=== PATIENT | male | born 1945 | race Caucasian/White ===

== ENCOUNTER 2016-05-17 22:00 | Inpatient (IN) | payer MEDICARE ==
[~2016-05-17] VITALS: Ht 175.3 cm; Wt 65.5 kg
[2016-05-17] MEDS ORDERED: SODIUM CHLORIDE 0.9% 1,000 ML IV SCH (22:05)
[2016-05-17] MEDS ORDERED: FENTANYL PF 100 MCG/2ML ONE ×2 (22:07→22:16)
[2016-05-17 22:16] LABS: HEMOGLOBIN 16.3 g/dL (13.7-18.0)
[2016-05-17] MEDS ORDERED: VERAPAMIL 2.5 MG/ML, 2ML ONE (22:16)
[2016-05-17] MEDS ORDERED: MIDAZOLAM 1 MG/ML, 5ML ONE (22:16)
[2016-05-17] MEDS ORDERED: BIVALIRUDIN 250 MG ONE (22:17)
[2016-05-17] MEDS ORDERED: TICAGRELOR 90 MG TABLET ONE (22:17)
[2016-05-17] MEDS ORDERED: HEPARIN 1,000 UNITS/ML, 10ML ONE (22:17)
[2016-05-17] MEDS ORDERED: LIDOCAINE 2%, 20ML ONE (22:17)
[2016-05-17] MEDS ORDERED: PLEASE ENTER HEIGHT AND WEIGHT MC SCH (22:30)
[2016-05-17] MEDS ORDERED: NITROGLYCERIN 0.4 MG BOTTLE (25 TABS) SL PRN (22:30)
[2016-05-17] MEDS ORDERED: FENTANYL PF 100 MCG/2ML IVPush PRN (22:30)
[2016-05-17] MEDS ORDERED: ATORVASTATIN 80 MG TABLET PO ONE (22:30)
[2016-05-17] MEDS ORDERED: SODIUM CHLORIDE 0.9%, 500ML IVBOLUS ONE (22:30)
[2016-05-17] MEDS ORDERED: EPTIFIBATIDE 20 MG/10 ML ONE (22:59)
[2016-05-17] MEDS ORDERED: HEPARIN 25,000 UNITS/500ML PMX 500 ML ONE (23:08)
[2016-05-17] MEDS ORDERED: AMIODARONE 50 MG/ML, 3ML ONE (23:14)
[2016-05-17] MEDS: METOPROLOL TARTRATE 25 MG TABLET PO SCH (23:30)
[2016-05-17] MEDS ORDERED: ONDANSETRON 2MG/ML, 2ML IVPush PRN (23:30)
[2016-05-17] MEDS ORDERED: PHENYLEPHRINE 10 MG/ML ONE (23:35)
[2016-05-17] MEDS ORDERED: HEPARIN 5,000 UNITS/ML, 1ML IV ONE (23:45)
[2016-05-18 00:29] VITALS: BP 103/72
[2016-05-18] MEDS: ATORVASTATIN 80 MG TABLET PO SCH ×2 (01:18→20:31)
[2016-05-18 04:58] VITALS: BP 96/66
[2016-05-18] MEDS: PHENYLEPHRINE 20 MG in SODIUM CHLORIDE 0.9% 248 ML IV PRN ×3 (05:16→21:24)
[2016-05-18 05:51] LABS: HEMOGLOBIN 15.3 g/dL (13.7-18.0)
[2016-05-18 05:59] LABS: BLOOD UREA NITROGEN 9 mg/dL (7-18)
[2016-05-18] MEDS: HEPARIN 5,000 UNITS/ML, 1ML IV PRN ×3 (06:03→20:29)
[2016-05-18 06:18] LABS: IS PT STATUS REG ER OR PRE ER? NO
[2016-05-18] MEDS: ASPIRIN 81 MG TABLET EC PO SCH ×2 (09:00→13:36)
[2016-05-18] MEDS: METOPROLOL TARTRATE 25 MG TABLET PO SCH ×2 (09:00→20:29)
[2016-05-18] MEDS: SODIUM CHLORIDE FLUSH 10ML SYR IVF SCH ×2 (13:33→20:32)
[2016-05-18] MEDS: HYDROCORTISONE 100 MG INJ. IVPush SCH (18:34)
[2016-05-19] MEDS: HYDROCORTISONE 100 MG INJ. IVPush SCH (02:28)
[2016-05-19] MEDS: HEPARIN 25,000 UNITS/500ML PMX 500 ML IV PRN ×2 (02:30→23:35)
[2016-05-19 04:00] VITALS: BP 94/71
[2016-05-19] MEDS: PHENYLEPHRINE 20 MG in SODIUM CHLORIDE 0.9% 248 ML IV PRN ×2 (05:42→15:54)
[2016-05-19] MEDS: METOPROLOL TARTRATE 25 MG TABLET PO SCH ×2 (09:00→21:00)
[2016-05-19 09:07] LABS: BLOOD UREA NITROGEN 8 mg/dL (7-18)
[2016-05-19] MEDS: SODIUM CHLORIDE FLUSH 10ML SYR IVF SCH ×2 (09:43→22:19)
[2016-05-19] MEDS: HEPARIN 5,000 UNITS/ML, 1ML IV PRN (09:43)
[2016-05-19] MEDS: ASPIRIN 81 MG TABLET EC PO SCH (09:43)
[2016-05-19] MEDS: ATORVASTATIN 80 MG TABLET PO SCH (22:19)
[2016-05-20] MEDS: HEPARIN 5,000 UNITS/ML, 1ML IV PRN (00:04)
[2016-05-20] MEDS: PHENYLEPHRINE 20 MG in SODIUM CHLORIDE 0.9% 248 ML IV PRN ×2 (02:12→15:27)
[2016-05-20 04:00] VITALS: BP 92/50
[2016-05-20 06:04] LABS: ASPARTATE AMINO TRANSFERASE 23 U/L (15-37); BLOOD UREA NITROGEN 10 mg/dL (7-18)
[2016-05-20] MEDS: METOPROLOL TARTRATE 25 MG TABLET PO SCH ×2 (09:00→21:00)
[2016-05-20] MEDS: SODIUM CHLORIDE FLUSH 10ML SYR IVF SCH ×2 (09:00→19:40)
[2016-05-20] MEDS ORDERED: POTASSIUM CHLORIDE 20 MEQ TAB.ER.PRT PO ONE (10:00)
[2016-05-20] MEDS: ASPIRIN 81 MG TABLET EC PO SCH (11:22)
[2016-05-20] MEDS ORDERED: CALCIUM GLUCONATE 4.6 MEQ in SODIUM CHLORIDE 0.9% 50 ML IV ONE (15:00)
[2016-05-20] MEDS: ATORVASTATIN 80 MG TABLET PO SCH (19:38)
[2016-05-20] MEDS: HEPARIN 25,000 UNITS/500ML PMX 500 ML IV PRN (19:39)
[2016-05-21 04:00] VITALS: BP 91/64
[2016-05-21 05:10] LABS: HEMOGLOBIN 13.5 g/dL (13.7-18.0)
[2016-05-21 05:26] LABS: BLOOD UREA NITROGEN 11 mg/dL (7-18)
[2016-05-21] MEDS: HEPARIN 5,000 UNITS/ML, 1ML IV PRN (06:32)
[2016-05-21] MEDS: ASPIRIN 81 MG TABLET EC PO SCH (09:22)
[2016-05-21] MEDS: SODIUM CHLORIDE FLUSH 10ML SYR IVF SCH ×2 (09:23→20:38)
[2016-05-21] MEDS: HEPARIN 25,000 UNITS/500ML PMX 500 ML IV PRN ×2 (15:05→20:35)
[2016-05-21] MEDS ORDERED: WARFARIN 5 MG TABLET PO-COUM ONE (18:00)
[2016-05-21] MEDS: ATORVASTATIN 80 MG TABLET PO SCH (20:32)
[2016-05-22 08:20] LABS: ASPARTATE AMINO TRANSFERASE 24 U/L (15-37); BLOOD UREA NITROGEN 11 mg/dL (7-18)
[2016-05-22] MEDS: ASPIRIN 81 MG TABLET EC PO SCH (08:51)
[2016-05-22] MEDS: SODIUM CHLORIDE FLUSH 10ML SYR IVF SCH ×2 (08:52→20:54)
[2016-05-22] MEDS ORDERED: MAGNESIUM SULFATE PMX 2GM/50ML 50 ML IV ONE (12:00)
[2016-05-22] MEDS: CARVEDILOL 3.125 MG TABLET PO SCH ×2 (12:33→18:00)
[2016-05-22] MEDS ORDERED: FENTANYL PF 100 MCG/2ML ONE (16:13)
[2016-05-22] MEDS ORDERED: VERAPAMIL 2.5 MG/ML, 2ML ONE (16:13)
[2016-05-22] MEDS ORDERED: NITROGLYCERIN 5 MG/ML, 10ML ONE (16:13)
[2016-05-22] MEDS ORDERED: MIDAZOLAM 1 MG/ML, 5ML ONE (16:13)
[2016-05-22] MEDS ORDERED: TICAGRELOR 90 MG TABLET ONE ×2 (16:14→18:48)
[2016-05-22] MEDS ORDERED: HEPARIN 1,000 UNITS/ML, 10ML ONE (16:14)
[2016-05-22] MEDS ORDERED: BIVALIRUDIN 250 MG ONE (16:14)
[2016-05-22] MEDS ORDERED: LIDOCAINE 2%, 20ML ONE (16:15)
[2016-05-22] MEDS ORDERED: WARFARIN 5 MG TABLET PO-COUM SCH (18:00)
[2016-05-22] MEDS ORDERED: ONDANSETRON 2MG/ML, 2ML ONE (18:06)
[2016-05-22] MEDS ORDERED: VASOPRESSIN 20 UNIT/ML, 1ML ONE (18:08)
[2016-05-22] MEDS ORDERED: EPINEPHRINE 1 MG/ML, 1ML ONE (18:08)
[2016-05-22] MEDS ORDERED: PHENYLEPHRINE 10 MG/ML ONE (18:14)
[2016-05-22] MEDS ORDERED: EPTIFIBATIDE 0 ML IV ONE (18:20)
[2016-05-22] MEDS ORDERED: EPTIFIBATIDE 20 MG/10 ML ONE (18:20)
[2016-05-22] MEDS ORDERED: EPINEPHRINE SYRINGE 0.1 MG/ML, 10ML ONE (18:27)
[2016-05-22] MEDS: TICAGRELOR 90 MG TABLET PO SCH (20:53)
[2016-05-22] MEDS: ATORVASTATIN 80 MG TABLET PO SCH (20:53)
[2016-05-22] MEDS: EPTIFIBATIDE 100 ML IV SCH (20:53)
[2016-05-22] MEDS: MORPHINE SULFATE 4 MG/ML, 1ML IVPush PRN (20:57)
[2016-05-23] MEDS: EPTIFIBATIDE 100 ML IV SCH (02:07)
[2016-05-23] MEDS: MORPHINE SULFATE 4 MG/ML, 1ML IVPush PRN (03:01)
[2016-05-23 04:27] LABS: HEMOGLOBIN 13.6 g/dL (13.7-18.0)
[2016-05-23 04:38] LABS: BLOOD UREA NITROGEN 9 mg/dL (7-18)
[2016-05-23] MEDS: CARVEDILOL 3.125 MG TABLET PO SCH ×2 (05:06→18:36)
[2016-05-23] MEDS ORDERED: MAGNESIUM SULFATE PMX 2GM/50ML 50 ML IV ONE (10:00)
[2016-05-23] MEDS ORDERED: FUROSEMIDE 20 MG/2 ML IV ONE (10:00)
[2016-05-23] MEDS: ASPIRIN 81 MG TABLET EC PO SCH (10:15)
[2016-05-23] MEDS: SODIUM CHLORIDE FLUSH 10ML SYR IVF SCH ×2 (10:15→21:33)
[2016-05-23] MEDS: TICAGRELOR 90 MG TABLET PO SCH ×2 (10:15→21:33)
[2016-05-23 12:57] VITALS: BP 93/57
[2016-05-23] MEDS: CALCIUM CARBONATE 500 MG TAB.CHEW PO SCH ×2 (13:00→21:33)
[2016-05-23] MEDS ORDERED: HEPARIN 5,000 UNITS/ML, 1ML IV ONE (13:00)
[2016-05-23] MEDS ORDERED: HEPARIN 25,000 UNITS/500ML PMX 500 ML IV PRN (13:00)
[2016-05-23] MEDS ORDERED: CATHFLO-ALTEPLASE 2 MG/2 ML CATHFLUSH ONE ×2 (13:30→17:30)
[2016-05-23] MEDS ORDERED: WARFARIN 2.5 MG TABLET PO-COUM SCH (18:00)
[2016-05-23 18:34] VITALS: BP 95/61
[2016-05-23] MEDS: ATORVASTATIN 80 MG TABLET PO SCH (21:33)
[2016-05-23] MEDS: HEPARIN 5,000 UNITS/ML, 1ML IV PRN (21:34)
[2016-05-24 01:39] VITALS: BP 92/59
[2016-05-24 05:59] LABS: BLOOD UREA NITROGEN 15 mg/dL (7-18)
[2016-05-24] MEDS: CARVEDILOL 3.125 MG TABLET PO SCH ×2 (06:08→18:26)
[2016-05-24] MEDS: HEPARIN 5,000 UNITS/ML, 1ML IV PRN (06:14)
[2016-05-24 07:17] VITALS: BP 87/58
[2016-05-24] MEDS: ASPIRIN 81 MG TABLET EC PO SCH (09:34)
[2016-05-24] MEDS: TICAGRELOR 90 MG TABLET PO SCH ×2 (09:35→20:16)
[2016-05-24] MEDS: SODIUM CHLORIDE FLUSH 10ML SYR IVF SCH ×2 (09:35→20:16)
[2016-05-24] MEDS: ENALAPRIL 2.5MG TABLET PO SCH ×2 (11:30→20:16)
[2016-05-24 13:35] VITALS: BP 91/70
[2016-05-24] MEDS ORDERED: WARFARIN 2.5 MG TABLET PO-COUM SCH (18:00)
[2016-05-24 18:25] VITALS: BP 96/67
[2016-05-24 18:53] VITALS: BP 98/64
[2016-05-24] MEDS: ATORVASTATIN 80 MG TABLET PO SCH (20:16)
[2016-05-25 01:07] VITALS: BP 92/60
[2016-05-25] MEDS: CARVEDILOL 3.125 MG TABLET PO SCH (05:50)
[2016-05-25 07:39] VITALS: BP 90/60
[2016-05-25] MEDS: TICAGRELOR 90 MG TABLET PO SCH (08:51)
[2016-05-25] MEDS: ASPIRIN 81 MG TABLET EC PO SCH (08:51)
[2016-05-25] MEDS: ENALAPRIL 2.5MG TABLET PO SCH (08:52)
[2016-05-25] MEDS: SODIUM CHLORIDE FLUSH 10ML SYR IVF SCH (08:52)
[2016-05-25] MEDS ORDERED: TICA90TA PO (10:14)
[2016-05-25] MEDS ORDERED: ASPI-621 PO (10:14)
[2016-05-25] MEDS ORDERED: CARV3.1212 PO (10:14)
[2016-05-25] MEDS ORDERED: ATOR80TA75 PO (10:14)
[2016-05-25] MEDS ORDERED: WARF5TAB PO (10:14)
[2016-05-25] MEDS ORDERED: NITR0.4T8 SL (10:25)
[2016-05-25 13:23] VITALS: BP 93/60
[2016-05-25] MEDS ORDERED: WARFARIN 1 MG TABLET PO-COUM ONE (18:00)
== END 2016-05-25 16:04 | disposition home or self-care (01) | DRG 248 ==
LOC: MERGE 22:00 → EDBD 22:00 → EDSEX 22:00 → ED 22:00 → EDIP 22:12 → CCU 23:48 → 5SO 05-22 17:48 → CCU 05-22 19:07 → 5SO 05-23 12:37
PROVIDERS: ADMIT Internal Medicine Cardiovascular Disease; ATTEND Internal Medicine Cardiovascular Disease
PROC: 02703ZZ Dilation of Coronary Artery, One Artery, Percutaneous Approach (ICD-10-PCS; principal; 2016-05-17)
PROC: 03HY32Z Insertion of Monitoring Device into Upper Artery, Percutaneous Approach (ICD-10-PCS; 2016-05-17)
PROC: B2111ZZ Fluoroscopy of Multiple Coronary Arteries using Low Osmolar Contrast (ICD-10-PCS; 2016-05-17)
PROC: B2151ZZ Fluoroscopy of Left Heart using Low Osmolar Contrast (ICD-10-PCS; 2016-05-17)
PROC: 4A023N7 Measurement of Cardiac Sampling and Pressure, Left Heart, Percutaneous Approach (ICD-10-PCS; 2016-05-17)
PROC: 5A2204Z Restoration of Cardiac Rhythm, Single (ICD-10-PCS; 2016-05-17)
PROC: C22G1ZZ Tomographic (Tomo) Nuclear Medicine Imaging of Myocardium using Technetium 99m (Tc-99m) (ICD-10-PCS; 2016-05-18)
PROC: 02HV33Z Insertion of Infusion Device into Superior Vena Cava, Percutaneous Approach (ICD-10-PCS; 2016-05-19)
PROC: B548ZZA Ultrasonography of Superior Vena Cava, Guidance (ICD-10-PCS; 2016-05-19)
PROC: [UNRECOGNIZED PROCEDURE] (2016-05-21)
PROC: 02703D6 Dilation of Coronary Artery, One Artery, Bifurcation, with Intraluminal Device, Percutaneous Approach (ICD-10-PCS; 2016-05-22)
PROC: 02713ZZ Dilation of Coronary Artery, Two Arteries, Percutaneous Approach (ICD-10-PCS; 2016-05-22)
PROC: 02713ZZ Dilation of Coronary Artery, Two Arteries, Percutaneous Approach (ICD-10-PCS; 2016-05-22)
PROC: 4A023N7 Measurement of Cardiac Sampling and Pressure, Left Heart, Percutaneous Approach (ICD-10-PCS; 2016-05-22)
PROC: B2111ZZ Fluoroscopy of Multiple Coronary Arteries using Low Osmolar Contrast (ICD-10-PCS; 2016-05-22)
DX: I21.09 ST elevation (STEMI) myocardial infarction involving other coronary artery of anterior wall (principal); R57.0 Cardiogenic shock; I50.41 Acute combined systolic (congestive) and diastolic (congestive) heart failure; E43 Unspecified severe protein-calorie malnutrition; I49.01 Ventricular fibrillation; I47.2 Ventricular tachycardia; T82.867A Thrombosis due to cardiac prosthetic devices, implants and grafts, initial encounter; F17.210 Nicotine dependence, cigarettes, uncomplicated; I25.5 Ischemic cardiomyopathy; E78.5 Hyperlipidemia, unspecified; E83.51 Hypocalcemia; I25.10 Atherosclerotic heart disease of native coronary artery without angina pectoris; E87.6 Hypokalemia; Y83.1 Surgical operation with implant of artificial internal device as the cause of abnormal reaction of the patient, or of later complication, without mention of misadventure at the time of the procedure; Z68.21 Body mass index [BMI] 21.0-21.9, adult
CPT/HCPCS: 36415; 36569; 71010; 76937; 77001; 78451; 78466; 80047; 80048; 80053; 80061; 82040; 82330; 82533; 82962; 83735; 84484; 85014; 85018; 85025; 85520; 85610; 85730; 87081; 87324; 92920; 92928; 93005; 93454; 93458; 93880; 96374; C1760; C1876; C1894; C8929; J0171; J0583; J1644; J2250; J2405; J2997; J3010; J3490; A9502; A9505; C1725; C1751; C1769; C1887; C9898; J0282; J0610; J1327; J1720; J1940; J2370; J3475; J7040; J7050; Q9967